=== PATIENT | female | born 1990 | race Caucasian/White ===

== ENCOUNTER 2018-01-12 06:26 | Emergency (ER) | payer SELFPAY ==
[~2018-01-12] VITALS: Ht 172.7 cm; Wt 61.2 kg
[2018-01-12 07:28] LABS: *URINE HCG, QUAL NEGATIVE (NEGATIVE)
[2018-01-12] MEDS ORDERED: KETOROLAC TROMETHAMINE 30 MG INJ IM ONE (07:30)
[2018-01-12] MEDS ORDERED: KETOROLAC TROMETHAMINE 30 MG INJ ONE (07:44)
--- NOTE | 2018-01-12 07:53 | NUR ---
Patient discharged to home in stable conditon. Written and verbal after care instructions given. Patient verbalizes understanding of instructions.
== END 2018-01-12 07:56 | disposition home or self-care (01) ==
LOC: ER 06:29
DX: J02.8 Acute pharyngitis due to other specified organisms (principal); B97.89 Other viral agents as the cause of diseases classified elsewhere
CPT/HCPCS: 36415; 84703; 86403; 87070; A4663; J1885